=== PATIENT | male | born 1990 | race Caucasian/White ===

== ENCOUNTER 2020-12-14 12:50 | Emergency (ER) | payer OTHER ==
[~2020-12-14] VITALS: Ht 182.9 cm; Wt 90.7 kg
[~2020-12-14 12:50] MED LIST: ANUCORT-HC25 MG PR; BUSPAR5 MG PO; MEDROL 4MG DOSEP4 MG PO; PAXIL20 MG PO; TOPIRAMATE ER100 MG PO
[2020-12-14 13:38] LABS: BASOPHIL 1.4 % (0-2); EOSINOPHIL 0.1 % (0-5); HCT 51.5 % (42.0-52.0); LYMPHOCYTE 32.9 % (15-48); MCH 34.4 pg (25.0-31.0); MCHC 36.1 g/dL (32.0-36.0); MCV 95.2 fL (78.0-100.0); MONOCYTE 8.7 % (0-12); MPV 8.7 fL (6.0-9.5); NEUTROPHIL 56.6 % (41-80); NRBC 0; PLT 273 K/uL (150-400); RBC 5.41 M/uL (4.70-6.00); RDW 11.9 % (11.5-14.0)
[2020-12-14 13:39] LABS: HGB 18.6 g/dl (13.2-18.0)
[2020-12-14 13:45] LABS: ALBUMIN 4.8 g/dL (3.4-5.0); BUN/CREAT RATIO (CALC) 10.6 RATIO; CREATININE 0.85 mg/dL (0.67-1.17); GLOBULIN (CALCULATION) 3.4 g/dL; POTASSIUM 3.8 mmol/L (3.5-5.1); TOTAL PROTEIN 8.2 g/dL (6.4-8.2)
[2020-12-14 13:50] LABS: LACTIC ACID 8.4 mmol/L (0.4-1.9)
[2020-12-14 16:43] LABS: BILIRUBIN NEGATIVE (NEGATIVE); BLOOD NEGATIVE Ery/uL (NEGATIVE); CLARITY CLEAR (CLEAR); COLOR YELLOW (YELLOW); GLUCOSE (U) NORMAL (NORMAL); LEUKOCYTES NEGATIVE Leu/uL (NEGATIVE); NITRITE NEGATIVE (NEGATIVE); PROTEIN 1+ mg/dL (NEGATIVE)
[2020-12-14 16:52] LABS: BACTERIA TRACE
== END 2020-12-14 18:14 | disposition home or self-care (01) ==
LOC: FER 12:50
PROVIDERS: Emergency Medicine
DX: F10.10 Alcohol abuse, uncomplicated (principal); F17.290 Nicotine dependence, other tobacco product, uncomplicated
CPT/HCPCS: 36415; 80053; 81001; 83036; 83605; 83690; 84145; 85025; 87040; 93005; J2060; J2405; J2543; J2550; J7030; Q9967